=== PATIENT | female | born 1970 | race Caucasian/White ===

== ENCOUNTER 2024-07-21 14:23 | Outpatient (REF) | payer SELFPAY ==
--- OUTSIDE RECORDS SUMMARY | 2024-07-21 14:30 | XMS_ITS | Continuity of Care Document ---
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 It does not include entries that were removed or entered in error. Problem Status Onset Date Problem Type Date of Resolution Comments Source Impacted cerumen Active 06/29/2024 Diagnosis [facility] Hyperlipidemia Active 06/29/2024 Diagnosis 6200 [facility] Vitamin D deficiency Active 06/29/2024 [facility] Active 06/29[facility]2024 [facility] Active 06/29/2024 Diagnosis [facility] Encounter for other orthopedic aftercare Active 11/18/2017 Condition [facility] Essential hypertension Active Condition [facility] [facility] Hyperlipidemia Active Condition [facility] [facility] Impacted cerumen Active Condition [facility] Lump on neck Active Condition [facility] Overweight Active Condition [facility] Perimenopausal disorder Active Condition [facility] [facility] Sleep disorder Active Condition [facility] [facility] Vitamin D deficiency Active Condition 6 [facility] Well adult Active Condition [facility] Medications Combined list of outpatient medications from [facility] and [facility] facilities.Medications provided include 1) outpatient medications from the last 15 months, and 2) patient-reported medications. Medication Details Route Status Patient Instructions Prescription Expires Prescription Number Last Dispense Date Ordering Provider Order Date Order Qty Source Benadryl 25 mg oral tablet 1 tab(s), Oral, TID, PRN as needed for allergy symptoms , # 30 tab(s), 0 total refill(s ), Maintena nce, 1 tab(s) Oral TID,PRN: as needed for allergy symptoms , Pharmacy : [facility] Oral (given by mouth) Discont inued 03/26/2023 30.[facility] 300 mg oral capsule 2 cap, Oral, Daily, 0 total refill(s ), Maintena nce Oral (given by mouth) [facility]03/[facility] 500 mg oral tablet 1 tab(s), Oral, every 12 hr, X 5 days, # 10 tab(s), 0 total refill(s ), Acute, 03/23/23 8:37:00 PM CDT, 1 tab(s) Oral every 12 hr,x5 days, Pharmacy : [id number] Oral (given by mouth) Complet ed 03/24/2023 10.[facility] 300 mg oral capsule 1 cap(s), Oral, BID, X 7 days, # 14 cap(s), 0 total refill(s ), Acute, 10/21/21 1:40:00 PM CDT, 1 cap(s) Oral BID,x7 days, Pharmacy : [facility] Oral (given by mouth) Complet ed 10/21/2021 14.0 0032A[facility] conjugated estrogens 0.3 mg oral tablet 1 tab(s), Oral, Daily, # 90 tab(s), 3 total refill(s ), Hard Stop, Pharmacy : [facility] Oral (given by mouth) Complet ed 06/29/2024 90.0 0057C[facility] estrogens 0.3 mg oral tablet 1 tab(s), Oral, Daily, # 90 tab(s), 1 total refill(s ), Maintena nce, 1 tab(s) Oral Daily, Pharmacy : [facility] Oral (given by mouth) Ordered 90.0 0C-F [facility] Debrox 6.5% otic solution 5 drop(s), Ear-Left , BID, # 30 mL, 0 total refill(s ), Maintena nce, 5 drop(s) Ear-Left BID,x7 days, Pharmacy : [facility] Left ear Ordered 07/06/2024 30.0 0C -[facility] Diflucan 150 mg oral tablet 1 tab(s), Oral, As Directed , X 1 days, # 1 tab(s), 0 total refill(s ), Acute, 10/15/21 1:44:00 PM CDT, 1 tab(s) Oral As Directed ,x1 days, Pharmacy : [facility] Oral (given by mouth) Complet ed 10/15/2021 1.0 0032A-E [facility] Effexor XR 37.5 mg oral capsule, extended release 1 cap(s), Oral, Daily, # 90 cap(s), 0 total refill(s ), Maintena nce, 1 cap(s) Oral Daily, Pharmacy : [facility] Oral (given by mouth) Discont inued 06/23/2021 90.0 [facility] LISINOPRIL (lisinopril ), 20 MG, TABLET, ORAL, [employer], 1000 ea. BOTTLE Active [id number] 4 2023 90 Pharmac y Data Transac tion Service Facilit y lisinopril 10 mg oral tablet 1 tab(s), Oral, Daily, for blood pressure , # 90 tab(s), 3 total refill(s ), Hard Stop, [facility] Oral (given by mouth) Complet ed 03/23/2021 90.0 [facility] [place] lisinopril 10 mg oral tablet 1 tab(s), Oral, Daily, for blood pressure , # 90 tab(s), 0 total refill(s ), Maintena nce, 1 tab(s) Oral Daily,In str:for blood pressure , Pharmacy : [facility] Oral (given by mouth) Discont inued 05/24/2021 90.0 [facility] [place] lisinopril 20 mg oral tablet 1 tab(s), Oral, Daily, for blood pressure , # 90 tab(s), 3 total refill(s ), Hard Stop, Pharmacy : [facility] Oral (given by mouth) Complet ed 10/15/2023 90.0 [facility] mg oral tablet 1 tab(s), Oral, Daily, for blood pressure , # 90 tab(s), 3 total refill(s ), Maintena nce, 1 tab(s) Oral Daily,In str:for blood pressure , Pharmacy : [facility] Oral (given by mouth) Discont inued 08/11/2022 90.0 [facility] l[facility] 20 mg oral tablet 1 tab(s), Oral, Daily, for blood pressure , # 90 tab(s), 3 total refill(s ), Maintena nce, 1 tab(s) Oral Daily,In str:for blood pressure , Pharmacy : [facility] Oral (given by mouth) Ordered 90.0 [facility] Medrol Dosepak 4 mg oral tablet 1 packet(s ), Oral, As Directed , as directed on package labeling , X 6 days, # 21 tab(s), 0 total refill(s ), Acute, 1 packet(s ) Oral As Directed ,x6 days,Ins tr:as directed on package labeling , Pharmacy : [facility] Oral (given by mouth) Complet ed 10/20/2021 21.0 [facility] NITROFURANT OIN MONO-MACRO (NITROFURAN TOIN MONOHYD/M-C RYST), 100 MG, CAPSULE, ORAL, [employer], 100 ea. BOTTLE Active [id number] 2023 14 Pharmac y Data Transac tion Service Facilit y omeprazole 20 mg oral delayed release capsule 1 cap(s), Oral, BID, 30 to 60 minutes before a meal, # 60 cap(s), 2 total refill(s ), Maintena nce, [facility] Oral (given by mouth) Discont inued 11/04/2019 60.0 0125C-A JOSEPH [facility] ondansetron 4 mg oral tablet, disintegrat ing 1 tab(s), Oral, every 8 hr, PRN as needed for Nausea or Vomiting , # 10 tab(s), 0 total refill(s ), Acute, 03/23/23 12:00:00 AM CDT, 1 tab(s) Oral every 8 hr,PRN:a s needed for Nausea or Vomiting , Pharmacy : [id number] Oral (given by mouth) Complet ed 03/23/2023 10.0 0057[facility] PREMARIN (ESTROGENS, CONJUGATED) , 0.3MG, TABLET, ORAL, [employer], 1000 ea. BOTTLE Active [id number] 3 2022 90 Pharmac y Data Transac tion Service Facilit y PREMARIN (ESTROGENS, CONJUGATED) , 0.3MG, TABLET, ORAL, [employer], 1000 ea. BOTTLE Active [id number] 4 2023 90 Pharmac y Data Transac tion Service Facilit y Premarin 0.3 mg oral tablet 90 tab(s), 0 Refill(s ), 0 total refill(s ), Soft Stop Discont inued 09/16/2023 0057C[facility] Premarin 0.3 mg tablet 0.3 mg, Oral, Daily, # 90 EA, 1 total refill(s ), Hard Stop Oral (given by mouth) Complet ed 07/10/2024 90.0 Ambulat ory Pharmac y progesteron e 100 mg oral capsule 1 cap(s), Oral, every day at bedtime, # 90 cap(s), 3 total refill(s ), Hard Stop, Pharmacy : [facility] Oral (given by mouth) Complet ed 06/29/2024 90.0 7C[facility]I [facility] progesteron e 100 mg oral capsule 2 cap(s), Oral, every day at bedtime, 0 total refill(s ), Maintena nce Oral (given by mouth) Discont inued 07/11/2023 0057[facility] progesteron e 100 mg oral capsule 1 cap(s), Oral, every day at bedtime, # 90 cap(s), 1 total refill(s ), Maintena nce, 1 cap(s) Oral every day at bedtime, Pharmacy : [facility] Oral (given by mouth) Ordered 90.0 6200C-F [facility] Promethazin e with Codeine 6.25 mg-10 mg/5 mL oral syrup 5 mL, Oral, every 6 hr, PRN cough, # 180 mL, 0 total refill(s ), Maintena nce, 5 mL Oral every 6 hr,PRN:a s needed for cough, Pharmacy : [facility] Oral (given by mouth) Discont inued 03/26/2023 180.0 0032A-E [facility] PROMETRIUM (progestero ne, micronized) , 100 MG, CAPSULE, ORAL, [employer] [facility], 30 ea. BOTTLE Cancele d [id number] : 2023 0 Pharmac y Data Transac tion Service Facilit y PROMETRIUM (progestero ne, micronized) , 100 MG, CAPSULE, ORAL, [employer] [facility], 30 ea. BOTTLE Active [id number] 3 2022 90 Pharmac y Data Transac tion Service Facilit y Prometrium 100 mg oral capsule 1 cap(s), Oral, Daily, X 30 days, # 90 cap(s), 1 total refill(s ), Acute, 1 cap(s) Oral Daily,x3 0 days, Pharmacy : [facility] Oral (given by mouth) Complet ed 05/27/2022 90.0 0032C-E [facility] Prometrium 100 mg oral capsule 90 cap(s), 0 Refill(s ), 0 total refill(s ), Soft Stop Discont inued 09/16/2023 0057C[facility] raNITIdine 150 mg oral capsule 2 cap(s), Oral, every day at bedtime, # 60 cap(s), 2 total refill(s ), Maintena nce, [facility] Oral (given by mouth) Discont inued 11/04/2019 60.0 0125C-A [facility] raNITIdine 150 mg oral tablet 300 mg, Oral, every day at bedtime, # 60 tab(s), 4 total refill(s ), Maintena nce, 2 tab(s) Oral every day at bedtime, Pharmacy : [id number] Oral (given by mouth) Discont inued 10/03/2020 60.0 0125C[facility] [place] Sudafed 30 mg oral tablet 1 tab(s), Oral, every 6 hr, # 24 tab(s), 0 total refill(s ), Maintena nce, 1 tab(s) Oral every 6 hr, Pharmacy : [facility] Oral (given by mouth) Discont inued 03/26/2023 24.0 0032A[facility] Tessalon Perles 100 mg oral capsule 1 cap(s), Oral, TID, PRN cough, X 10 days, # 30 cap(s), 0 total refill(s ), 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, 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 It does not include entries that were removed or entered in error. Substance Category Reaction Severity Reaction type Status Date Reported Comments Source doxycycline Drug allergy Pruritus Moderate Active 0057C-[facility] in [facility] DOXYCYCLINE HYCLATE Drug allergy (disorder ) Pruritus, Eye itching active 3 [facility] Penicillins Drug allergy (disorder ) Anaphylaxis active 9 D. Melissa. Rose Marie barcenas [facility] penicillins Drug allergy Anaphylaxis Unknown Active 9 7C[facility] in [facility] Tetracyclines Drug allergy (disorder ) Urticaria active 9 D. Joce barcenas [facility] Immunizations Combined list of available immunizations from the Department of Defense and Veterans Affairs facilities. Immunization Series Date Given Administered By Site Reaction Lot Number CVX Code Drug Trim Attacher Status Comments Source influenza virus vaccine, inactivated 2023 JARABPEGAMARLEVON Boyd jeimy, left (delt oid) [id number] Kaseya, A [employer] complet ed influenza virus vaccine, inactivat ed 06/29/[address] [place] [address] COVID-19 vaccine(Comir kalpesh 12y+) 2022 HELENOWUSU-BA 309 complet ed Result Comment: Route: Unknown Manufactu rer: OT (PFR) [address] [place] [address] Influenza, inj, MDCK, quadrivalent- pf 2022 HELENOWUSU-BA AH 171 complet ed Result Comment: Route: Unknown Manufactu rer: [facility] (SEQ) [address] [place] [address] zoster vaccine, inactivated 2022 HELENOWUSU-BA AH 187 complet ed Result Comment: Route: Unknown Manufactu rer: [facility] (SKB) [address] [place] [address] COVID-19, mRNA, LNP-S, PF, 30 mcg/0.3 mL dose, nicole-sucrose 2021 SUAREZ-EISM AN, [employer] [place] (PFR) Not Given COVID-19, mRNA, LNP-S, PF, 30 mcg/0.3 mL dose, nicole-sucr ose DoD zoster recombinant 2021 SUAREZ-EISM AN, () Not Given zoster recombina nt DoD SARS-CoV-2 mRNA(toziname ckk-xcvz-bal) vac 2021 NINO Barcenas 217 complet ed Result Comment: Unit: Unknown Manufactu rer: [employer]u [employer] [place] (PFR) 0057C-[facility] influenza virus vaccine, inactivated 2020 CALEBLEANDRO Boyd jeimy, left (delt oid) [id number] Gl[employer]oSmith[employer] ne complet ed Result Comment: Performed By: CPL Carlos Santos 0032C-E [facility] COVID Vaccine Moderna 2020 ADRI Dempseyul jeimy, left (delt oid) [id number] Moderna [employer] complet ed COVID Vaccine Moderna 05/23/21 Given [facility] tetanus, diphtheria, acellular pertu is 2020 ADRI ALLION Shoul jeimy, right (delt oid) [id number] 115 GlaxoSmithKli wi complet ed tetanus, diphtheri a, acellular pertussis 05/23/21 Given [facility] Vaccine Pfizer 2020 CONCETTA.EDCHRISTINEALV ONMURRAY Shoul jeimy, left (delt oid) [id number] PFIZER complet ed Result Comment: Patient reporting for COVID-19 Vaccine. Patient identity with full name and , order and patient s five rights verified. Patient s health history reviewed; no allergies to medicatio n or contraind ications noted, per protocol. Medicatio n drawn up using aseptic technique . Patient s injectio n site prepped with alcohol prep pad. 0.3ml injected Intramusc ular into ed to wait 15 minutes after administr ation and report any side effects. Advised patient to report unusual symptoms after leaving clinic to ER or call 911, including redness, pain, swelling, fever, worsening of existing medical condition s. Patient has read and verbalize melissa martinez of 360T VIS, if indicated for this medicatio n. Patient screened by: Norma Trinh 0125C-[place] COVID Vaccine Pfizer 2020 CONCETTA.EDCHRISTINEALV ONMURRAY Shoul jeimy, left (delt oid) [id number] PFIZER complet ed Result Comment: Patient reporting for COVID-19 Vaccine. Patient identity with full name and , order and patient s five rights verified. Patient s health history reviewed; no allergies to medicatio n or contraind ications noted, per protocol. Medicatio n drawn up using aseptic technique . Patient s injectio n site prepped with alcohol prep pad. 0.3ml injected Intramusc ular into eft Arm. Patient advised to wait 15 minutes after administr ation and report any side effects. Advised patient to report unusual symptoms after leaving clinic to ER or call 911, including redness, pain, swelling, fever, worsening of existing medical condition s. Patient has read and verbalize melissa martinez of 360T VIS, if indicated for this medicatio n. Patient screened by: Norma Trinh 0125C-[facility] [place] influenza, injectable, quadrivalent, preservative free 2019 BUYS, () Not Given influenza , injectabl e, quadrival ent, preservat shante free [facility] influenza, injectable, quadrivalent- pf 2019 NINO R 150 complet ed Result Comment: Unit: Unknown Manufactu rer: () 0057C-I [facility] influenza virus vaccine, inactivated 2018 BILL Boyd jeimy, left (delt oid) [id number] [employer], [employer] complet ed Result Comment: SCREENED BY ALICIA WEST RN ADMINISTE RED BY ALICIA WEST RN 0125C-A [facility] Influenza, inj, MDCK, quadrivalent- pf 2017 NINO R 171 complet ed Result Comment: Route: Unknown Manufactu rer: () 005C-I [facility]osp[facility] influenza, seasonal, injectable-pf 2015 NINO R 140 complet ed Result Comment: Route: Unknown Manufactu rer: () 0057C-I [facility]ospita l Results Combined list of recent chemistry, hematology and other laboratory results from Department of Defense and Veterans Affairs, ranging from 15 months to all on record, depending upon the facility. Order Name Results Value Reference Range Date Interpretation Specimen Comments Source Hematolog y WBC 6.3 10^3/uL 4.4 - 9.5103 06/[address] [facility] Hematolog y RBC 4.53 10^6/uL 3.98 - 5.13493 06/[address] [facility] y Hemoglobin 13.9 g/dL 12.1 - 14.8 06/[address] [facility] Hematolog y Hematocrit 42.2 % 36.5 - 45.6 06/[address] [facility] Hematolog y MCV 93.1 fL 80.8 - 97.8 06/[address] [facility] Hemat[facility] y MCH 30.7 pg 26.8 - 32.9 06/[address] [place] [address] Hematolog y MCHC 32.9 g/dL 31.4 - 34.8 06/[address] [place] [address] Hematolog y RDW 11.9 % 10.9 - 13.5 06/[address] [place] [address] Hematolog y Platelets 254 10^3/uL 130 - [id number] 06/[address] [place] [address] Hematolog y MPV 8.9 fL 7.2 - 11.2 06/[address] [place] [address] Chemistry Sodium 141 mmol/L 136 - 145 06/[address] [place] [address] Chemistry Potassium Lvl 4.0 mmol/L 3.5 - 5.1 06/[address] [place] [address] Chemistry Chloride 104 mmol/L 98 - 107 06/[address] [place] [address] Chemistry CO2 25 mmol/L 22 - 29 06/[address] [place] [address] Chemistry Glucose Lvl 90 mg/dL 74 - 106 06/[address] [place] [address] Chemistry BUN 13 mg/dL 6 - 20 06/[address] [place] [address] Chemistry Creatinine Level 0.73 mg/dL 0.50 - 1.00 06/[address] [place] [address] Chemistry Calcium 9.3 mg/dL 8.6 - 10.2 06/[address] [place] [address] Chemistry AGAP 12 mmol/L 7 - 16 06/[address] [place] [address] Chemistry BUN/Creat Ratio 18 06/[address] [place] [address] Chemistry ALT 20 U/L 0 - 33 06/23 N Interpretiv e Data: Any abnormality in a patient's ALT could be a marker of serious liver disease, including chronic viral hepatitis. If the ALT is repeatedly elevated consider testing for Hepatitis C AB. [address] [place] [address] Chemistry AST 18 U/L 0 - 35 06/[address] [place] [address] Chemistry Albumin 4.4 g/dL 3.5 - 5.2 06/[address] [place] [address] Chemistry Alk Phos 73 U/L 35 - 104 06/[address] [place] [address] Chemistry Bilirubin Total 0.5 mg/dL 0.0 - 1.2 06/[address] [place] [address] Chemistry Protein Total 7.0 g/dL 6.6 - 8.7 06/[address] [place] [address] Chemistry Cholesterol Total 190 mg/dL 0 - 199 06/23 N Interpretiv e Data: Cholesterol : >18 yrs Desirable <200, Borderline High 200-239, High >=240 2-17 yrs Acceptable <170, Borderline High 170-199, High >=200 Source: -Third Report of the National Cholesterol Education Program (NCEP) Expert Panel on Detection, Evaluation, and Treatment of High Blood Cholesterol in Adults (Adult Treatment Panel III) Final Report; Circulation Jun 2002, 25,596 3-027. -Expert panel on integrated guidelines for cardiovascu lar health and risk reduction in children and adolescents ; Pediatrics Jun 2011,128(Forde pplement 5)T909-P058 . [address] [place] [address] Chemistry HDL Cholesterol 46 mg/dL 06/23 N Interpretiv e Data: HDL: 2-17 yrs Acceptable >45, Borderline Low 40-45, Low <40 >18 yrs Desirable >=60, Low <40 HDL <40 constitutes a coronary heart disease risk factor. HDL >60 is a negative risk factor for coronary heart disease. Source: -Third Report of the National Cholesterol Education Program (NCEP) Expert Panel on Detection, Evaluation, and Treatment of High Blood Cholesterol in Adults (Adult Treatment Panel III) Final Report; Circulation Jun 2002, ([phone]. -Expert panel on integrated guidelines for cardiovascu lar health and risk reduction in children and adolescents ; Pediatrics Jun 2011,128(Forde pplement 5)D608-U347 . [address] [place] [address] Chemistry LDL 113 mg/dL 0 - 100 06/23 H Interpretiv e Data: LDL: 2-17 yrs Acceptable <110, Borderline High 110-129, High >=130 >18 yrs Optimal <100, Near Optimal 100-129, Borderline High 130-159, High 160-189, Very High >=190 Source: -Third Report of the National Cholesterol Education Program (NCEP) Expert Panel on Detection, Evaluation, and Treatment of High Blood Cholesterol in Adults (Adult Treatment Panel III) Final Report; Circulation Jun 2002, ([phone] 3-232. -Expert panel on integrated guidelines for cardiovascu lar health and risk reduction in children and adolescents ; Pediatrics Jun 2011,128(Forde pplement 5)E392-N902 . [facility] Triglycerid es 147 mg/dL 0 - 149 06/23 N Interpretiv e Data: Triglycerid e: >18 yrs Desirable <150, Borderline High 150-199, High 200-499, Very High >=500 10-17 yrs Acceptable <90, Borderline High 90-129, High >=130 2-9 yrs Acceptable <75, Borderline High 75-99, High >=100 Source: -Third Report of the National Cholesterol Education Program (NCEP) Expert Panel on Detection, Evaluation, and Treatment of High Blood Cholesterol in Adults (Adult Treatment Panel III) Final Report; Circulation Jun 2002, 25,889 1-121. -Expert panel on integrated guidelines for cardiovascu lar health and risk reduction in children and adolescents ; Pediatrics Jun 2011,128(Forde pplement 5)U826-J753 . [facility] [employer] Chemistry Chol/HDL 4.13 06/23 6117-[facility] Chemistry LDL/HDL 2 06/23 6117C-S [employer] Chemistry VLDL 29 mg/dL 2 - 30 06/23 N [facility] Chemistry Non-HDL Cholesterol 144 06/23 Interpretiv e Data: Non-HDL: 2-17 yrs Acceptable <120, Borderline High 120-144, High >=145 >18 yrs Desirable <130, Less Desirable 130-159, Borderline High 160-189, High 190-219, Very High >=220 Non-HDL is a secondary target of therapy in persons with high serum triglycerid es (>199). The goal for Non-HDL in persons with high triglycerid es is 30 higher than their LDL goal. Source: -Third Report of the National Cholesterol Education Program (NCEP) Expert Panel on Detection, Evaluation, and Treatment of High Blood Cholesterol in Adults (Adult Treatment Panel III) Final Report; Circulation Jun 2002(29),210 4-399. -Expert panel on integrated guidelines for cardiovascu lar health and risk reduction in children and adolescents ; Pediatrics Jun 2011,128(Forde pplement 5)C239-T570 . [address] [place] [address] Chemistry Hemoglobin A1c 5.0 % 4.0 - 5.6 06/[address] [place] [address] Chemistry eAvg Glucose 97 mg/dL 06/[address] [place] [address] Chemistry Vitamin D 25 OH 25.300 ng/mL 30.000 - 100.000 06/23 L Interpretiv e Data: </= 20 : Deficiency 21-29 : Insufficien cy 30-50 : Sufficient (target range) 50-100 : Sufficient (above target) 101-150 : High (low risk of toxicity) >150 : High (possible toxicity) [address] [place] [address] Chemistry TSH 3.360 uIU/mL 0.270 - 4.200 06/23 N Interpretiv e Data: Free T4 will be automatical ly performed when TSH <0.27 or >4.[address] [place] [address] Chemistry eGFR CKD EPI 98 mL/min 06/23 Interpretiv e Data: Estimated Glomerular Filtration Rate (eGFR) calculated using the 2020 Chronic Kidney Disease-Epi demiology (CKD-EPI) Collaborati on creatinine equation; units of measure are mL/min/1.73 m2. Results are only valid for adults (>=18 years) whose serum creatinine is in steady state. eGFR calculation s are not valid for patients with acute kidney injury and for patients on dialysis. Creatinine- based estimates of kidney function may also be inaccurate in patients with reduced creatinine generation due to decreased muscle mass (e.g., malnutritio n, severe hypoalbumin emia, sarcopenia, chronic neuromuscul ar disease, amputations , severe heart failure or liver disease) and in patients with increased creatinine generation due to increased muscle mass (e.g., muscle builders, anabolic steroids) or increased dietary intake. CKD is diagnosed based on abnormaliti es of kidney structure or function, present for >3 months, with implication s for health and disease. CKD is classified and staged based on cause, eGFR and albuminuria (quantified as urine albumin to creatinine ratio). An eGFR >60 mL/min/1.73 m2 in the absence of increased urine albumin excretion or structural abnormaliti es does not represent CKD. eGFR provides only an estimate of measured GFR within +/- 30% for most patients. As mentioned, nutritional status and muscle mass, among many factors, may lead to inaccuracy in the estimate. Consider ordering the creatinine- cystatin C panel if better accuracy is needed for clinical decision-ignacia loza. eGFR (mL/min/1.7 3 m2) CKD stage Interpretat ion >=90 G1 Normal 60-89 G2 Mild decrease 45-59 G3A Mild to moderate decrease 30-44 G3B Moderate to severe decrease 15-29 G4 Severe decrease <15 G5 Kidney failure [facility] Chemistry eGFR CKD EPI 106 mL/min/1 .73_m2 09/16 Interpretiv e Data: Estimated Glomerular Filtration Rate (eGFR) calculated using the 2020 Chronic Kidney Disease-Epi demiology (CKD-EPI) Collaborati on creatinine equation; units of measure are mL/min/1.73 m2. Results are only valid for adults (e18 years) whose serum creatinine is in steady state.? eGFR calculation s are not valid for patients with acute kidney injury and for patients on dialysis. ?Creatinine -based estimates of kidney function may also be inaccurate in patients with reduced creatinine generation due to decreased muscle mass (e.g., malnutritio n, severe hypoalbumin emia, sarcopenia, chronic neuromuscul ar disease, amputations , severe heart failure or liver disease) and in patients with increased creatinine generation due to increased muscle mass (e.g., muscle builders, anabolic steroids) or increased dietary intake. As drug clearance is proportiona l to total GFR and not GFR indexed to body surface area (BSA), in individuals with a BSA substantial ly different than 1.73 m2, drug dosing should be based the reported eGFRvalue de-indexed from BSA by multiplying by the individual s BSA and dividing by 1.73. CKD is diagnosed based on abnormaliti es of kidney structure or function, present for >3 months, with implication s for health and disease. CKD is classified and staged based on cause, eGFR and albuminuria (quantified as urine albumin to creatinine ratio). An eGFR >60 mL/min/1.73 m2 in the absence of increased urine albumin excretion or structural abnormaliti es does not represent CKD.eGFR (mL/min/1.7 3 m2) CKD stage Interpretat ion e90 G1 Normal 60-89 G2 Mild decrease 45-59 G3A Mild to moderate decrease 30-44 G3B Moderate to severe decrease 15-29 G4 Severe decrease <15 G5 Kidney failure [facility] Urinalys[facility] s UA Color Yellow *NA* (09/16/23 10:58 AM) 09/16 [facility] Urinalys[facility] UA Clarity Clear (09/16/23 10:58 AM) 09/16 N [facility] Urinalysi s UA Spec Gary 1.024 1.002 - 1.030 09/16 N [facility] Urinalysi s UA Glucose Negative mg/dL 09/16 N [facility] Urinalys[facility] s UA Bili Negative (09/16/23 10:58 AM) 09/16 N [facility] Urinalys[facility] s UA Ketones Negative (09/16/23 10:58 AM) 09/16 N [facility] Urinalys[facility] UA Blood Moderate *ABN* (09/16/23 10:58 AM) 09/16 A [facility] Urinalys[facility] s UA pH 5.0 (09/16/23 10:58 AM) 09/16 N [facility] Urinalys[facility] s UA Protein Negative (09/16/23 10:58 AM) 09/16 N [facility] Urinalysi s UA Urobilinoge n Normal (09/16/23 10:58 AM) 09/16 N [facility] Urinalysi s UA Nitrite Negative (09/16/23 10:58 AM) 09/16 N [facility] Urinalysi s UA Leuk Esterase Negative (09/16/23 10:58 AM) 09/16 N [facility] Urinalysi s UA WBC <1 /HPF 0 - 5 09/16 N [facility] Urinalysi s UA RBC /HPF 0 - 3 09/[address] [place] [address] Urinalysi s UA Mucous Rare /LPF 09/[address] [place] [address] Urinalysi s UA Epi Squam 1 /HPF 0 - 5 09/[address] [place] [address] Urinalysi s UA Bacteria None Seen (09/16/23 10:58 AM) 09/[address] [place] [address] Chemistry Cortisol Lvl 7.32 ug/dL 3.00 - 23.00 09/16 N Interpretiv e Data: Ingestion of Biotin or Biotin-cont aining supplements >5 mg/day within 8 hours of specimen collection has known interferenc e on the result of this test. Cortisol AM: 4.82 - 19.5 mcg/dL PM: 2.47 - 11.9 mcg/dL [address] [place] [address] Chemistry Cholesterol Total 196 mg/dL 100 - 200 09/[address] [place] [address] Chemistry HDL Cholesterol 43 mg/dL 40 - 59 09/[address] [place] [address] Chemistry Triglycerid es 161 mg/dL 09/[address] [place] [address] Chemistry VLDL 32 mg/dL 5 - 40 09/[address] [place] [address] Hematolog y WBC 6.4 K/mcL 4.7 - 10.8 09/[address] [place] [address] Hematolog y RBC 4.27 10^6/uL 4.20 - 5.23085 09/[address] [place] [address] Hematolog y Hemoglobin 13.2 g/dL 12.0 - 16.0 09/[address] [place] [address] Hematolog y Hematocrit 37.5 % 37.0 - 47.0 09/[address] [place] [address] Hematolog y MCV 87.9 fL 81.0 - 99.0 09/[address] [place] [address] Hematolog y MCH 31.0 pg 27.0 - 31.0 09/[address] [place] [address] Hematolog y MCHC 35.3 g/dL 32.0 - 36.0 09/[address] [place] [address] Hematolog y RDW 13.3 % 11.5 - 14.5 09/[address] [place] [address] Hematolog y Platelets 284 K/mcL 130 - 400 09/[address] [place] [address] Hematolog y MPV 9.0 fL 6.4 - 10.4 09/[address] [place] [address] Chemistry Ur Creat 143.8 mg/dL 20.0 - 275.0 09/[address] [place] [address] Chemistry Ur Protein <5.0 mg/dL 09/[address] [place] [address] Chemistry Ur Protein/Ur Creat Ratio <28.76 09/[address] [place] [address] Chemistry Vitamin D 25 OH 40 ng/mL 22 - 40 09/[address] [place] [address] Chemistry Hemoglobin A1c 5.1 % 4.3 - 5.6 09/16 N Interpretiv e Data: Reference Interval: d 5.7% Consensus guidelines as outlined by as outlined by ADA are the following: o?6.5% HbA1c: Diagnostics for Diabetes mellitus o?7.0% HbA1c: Target value to reduce microvascul ar complicatio ns for many non-pregnan t patients under glycemic control programs. o?<8.0% HbA1c: Target value that may be appropriate for patients with history of severe hypoglycemi a, limited life expectancy, advanced micro- or macrovascul ar complicatio ns, other co-morbid conditions or in those where interventio ns have proven difficult. o?Patie nts with HbA1c concentrati ons between 5.7% and 6.4% should be referred to support programs and may be considered for metformin therapy. o?For gestational diabetes (GDM), HbA1c may be used as an initial screen, but should be followed up using an alternative method for persistence . [address] [place] [address] Chemistry eAvg Glucose 100 09/[address] [place] [address] Chemistry T4 Free 1.12 ng/dL 0.64 - 1.79 09/[address] [place] [address] Chemistry TSH, Sensitive 2.320 uIU/mL 0.465 - 4.680 09/[address] [place] [address] Chemistry Vitamin B12 405 pg/mL 239 - 931 09/[address] [place] [address] Chemistry Glucose Lvl 101 mg/dL 65 - 110 09/[address] [place] [address] Chemistry BUN 15 mg/dL 7 - 17 09/[address] [place] [address] Chemistry Creatinine Level 0.64 mg/dL 0.52 - 1.04 09/[address] [place] [address] Chemistry Sodium 140 mmol/L 137 - 145 09/[address] [place] [address] Chemistry Potassium Lvl 4.3 mmol/L 3.6 - 5.0 09/[address] Chemistry Chloride 108 mmol/L 98 - 107 09/[address] [place] [address] Chemistry CO2 23 mmol/L 22 - 30 09/[address] [place] [address] Chemistry Calcium 9.3 mg/dL 8.4 - 10.2 09/[address] Chemistry Protein Total 7.5 g/dL 6.3 - 8.2 09/[address] Chemistry Albumin 4.3 g/dL 3.5 - 5.0 09/[address] Chemistry AST 35 U/L 14 - 52 09/[address] [place] [address] Chemistry Alk Phos 81 U/L 38 - 126 09/[address] Chemistry Bilirubin Total 0.5 mg/dL 0.2 - 1.3 09/[address] Chemistry ALT 22 U/L 0 - 35 09/[address] Chemistry AGAP 9 meq/L 8 - 12 09/[address] [place] [address] Hematolog y Neutrophil % Auto 66.1 % 42.2 - 75.2 02/26 /[address] [place] [address] Hematolog y Lymphocyte % Auto 23.5 % 20.5 - 51.1 09/[address] [place] [address] Hematolog y Monocyte % Auto 8.1 % 1.7 - 9.3 09/[address] [place] [address] Hematolog y Eosinophil % Auto 1.6 % 0.0 - 7.9 09/[address] [place] [address] Hematolog y Basophil % Auto 0.7 % 0.0 - 3.0 09/[address] [place] [address] Hematolog y Neutro Absolute 4.2 K/mcL 1.4 - 6.5 09/[address] [place] [address] Hematolog y Lymph Absolute 1.5 K/mcL 1.2 - 3.4 09/[address] [place] [address] Hematolog y Bacon Absolute 0.5 K/mcL 0.1 - 0.6 09/[address] [place] [address] Hematolog y Eos Absolute 0.1 K/mcL 0.0 - 0.7 09/[address] [place] [address] Hematolog y Baso Absolute 0.0 K/mcL 0.0 - 0.2 09/[address] [place] [address] Hematolog y nRBC % Auto 0.1 09/[address] [place] [address] Chemistry LDL Direct 124.6 mg/dL 0.0 - 99.9 09/[address] [place] [address] Chemistry POC U HCG Negative (03/18/23 5:10 PM) 03/[address] [place] [address] Chemistry Glucose Lvl 98 mg/dL 65 - 110 03/[address] [place] [address] Chemistry BUN 14 mg/dL 7 - 17 03/[address] [place] [address] Chemistry Creatinine Level 0.76 mg/dL 0.52 - 1.04 03/[address] [place] [address] Chemistry Sodium 140 mmol/L 137 - 145 03/[address] [place] [address] Chemistry Potassium Lvl 3.8 mmol/L 3.6 - 5.0 03/[address] [place] [address] Chemistry Chloride 104 mmol/L 98 - 107 03/[address] [place] [address] Chemistry CO2 25 mmol/L 22 - 30 03/[address] [place] [address] Chemistry Calcium 8.8 mg/dL 8.4 - 10.2 03/[address] [place] [address] Chemistry Protein Total 6.9 g/dL 6.3 - 8.2 03/[address] [place] [address] Chemistry Albumin 4.0 g/dL 3.5 - 5.0 03/[address] [place] [address] Chemistry AST 32 U/L 14 - 52 03/[address] [place] [address] Chemistry Alk Phos 80 U/L 38 - 126 03/[address] [place] [address] Chemistry Bilirubin Total 0.6 mg/dL 0.2 - 1.3 03/[address] [place] [address] Chemistry ALT 37 U/L 0 - 35 03/[address] [place] [address] Chemistry AGAP 11 meq/L 8 - 12 03/[address] [place] [address] Hematolog y ESR, Westergren 77 mm/h 0 - 30 03/[address] [place] [address] Hematolog y WBC 4.9 K/mcL 4.7 - 10.8 03/[address] [place] [address] Hematolog y RBC 3.83 10^6/uL 4.20 - 5.87226 03/[address] [place] [address] Hematolog y Hemoglobin 11.6 g/dL 12.0 - 16.0 03/[address] [place] [address] Hematolog y Hematocrit 33.7 % 37.0 - 47.0 03/[address] [place] [address] Hematolog y MCV 88.1 fL 81.0 - 99.0 03/[address] [place] [address] Hematolog y MCH 30.4 pg 27.0 - 31.0 03/18 N [facility] Sound Hematolog y MCHC 34.5 g/dL 32.0 - 36.0 03/18 N [facility] Sound Hematolog y RDW 12.5 % 11.5 - 14.5 03/18 N [facility] Sound Hematolog y Platelets 272 K/mcL 130 - 400 03/18 N [facility] Sound Hematolog y MPV 8.3 fL 6.4 - 10.4 03/18 N [facility] Differentia l? Manual (03/18/23 5:01 PM) 03/[address] [place] [address] Chemistry Lactic Acid Plasma 0.8 mmol/L 0.7 - 2.0 03/18 N Result Comment: TAT DELAYED DUE TO ANALYZER MALFUNCTION ; NOTIFIED RAMOS RN @ [phone]. - RD [address] [place] [address] Chemistry Lipase Lvl 91 U/L 23 - 300 03/[address] [place] [address] Chemistry CRP 3.6 mg/dL 0.0 - 1.0 03/18 H [facility] Sound Hematolog y PLT Estimate not indicate d 03/18 [facility] Sound Hematolog y Anisocytosi s Slight (03/18/23 5:01 PM) 03/[address] [place] [address] Sound Hematolog y Poikilocyto sis Slight (03/18/23 5:01 PM) 03/[address] [place] [address] Sound Hematolog y Ovalocytes Slight (03/18/23 5:01 PM) 03/18 N [facility] Sound Hematolog y Large Platelet Slight (03/18/23 5:01 PM) 03/18 N [facility] Sound Hematolog y Segs Man 60 % 50 - 70 03/18 N [facility] Sound Hematolog y Lymph Man 21 % 20 - 51 03/18 N [facility] Hematolog y Bacon Man 16 % 0 - 10 03/18 H [facility] Hematolog y Eos Man 3 % 0 - 10 03/18 N [facility] Hematolog y Neut Abs Man 2.9 K/mcL 1.4 - 6.5 03/18 N [facility] Hematolog y Bacon Abs Man 0.8 K/mcL 0.1 - 0.6 03/18 H [facility] Hematolog y Eos Abs Man 0.1 K/mcL 0.0 - 0.7 03/18 N [facility] Chemistry eGFR CKD EPI 95 mL/min/1 .73_m2 03/18 Interpretiv e Data: Estimated Glomerular Filtration Rate (eGFR) calculated using the 2020 Chronic Kidney Disease-Epi demiology (CKD-EPI) Collaborati on creatinine equation; units of measure are mL/min/1.73 m2. Results are only valid for adults (e18 years) whose serum creatinine is in steady state.? eGFR calculation s are not valid for patients with acute kidney injury and for patients on dialysis. ?Creatinine -based estimates of kidney function may also be inaccurate in patients with reduced creatinine generation due to decreased muscle mass (e.g., malnutritio n, severe hypoalbumin emia, sarcopenia, chronic neuromuscul ar disease, amputations , severe heart failure or liver disease) and in patients with increased creatinine generation due to increased muscle mass (e.g., muscle builders, anabolic steroids) or increased dietary intake. As drug clearance is proportiona l to total GFR and not GFR indexed to body surface area (BSA), in individuals with a BSA substantial ly different than 1.73 m2, drug dosing should be based the reported eGFRvalue de-indexed from BSA by multiplying by the individual s BSA and dividing by 1.73. CKD is diagnosed based on abnormaliti es of kidney structure or function, present for >3 months, with implication s for health and disease. CKD is classified and staged based on cause, eGFR and albuminuria (quantified as urine albumin to creatinine ratio). An eGFR >60 mL/min/1.73 m2 in the absence of increased urine albumin excretion or structural abnormaliti es does not represent CKD.eGFR (mL/min/1.7 3 m2) CKD stage Interpretat ion e90 G1 Normal 60-89 G2 Mild decrease 45-59 G3A Mild to moderate decrease 30-44 G3B Moderate to severe decrease 15-29 G4 Severe decrease <15 G5 Kidney failure [facility] Urinalysi s UA Color Lidia *ABN* (03/18/23 4:45 PM) 03/18 A [facility] Urinalysi s UA Clarity Cloudy *ABN* (03/18/23 4:45 PM) 03/18 A [facility] Urinalysi s UA Spec Gary 1.023 1.002 - 1.030 03/18 N [facility] Urinalysi s UA Glucose Negative mg/dL 03/18 N [facility] Urinalysi s UA Bili Negative (03/18/23 4:45 PM) 03/18 N [facility] Urinalysi s UA Ketones Negative (03/18/23 4:45 PM) 03/18 N [facility] Urinalysi s UA Blood Moderate *ABN* (03/18/23 4:45 PM) 03/18 A [facility] Urinalysi s UA pH 5.0 (03/18/23 4:45 PM) 03/18 N [facility] Urinalysi s UA Protein Negative (03/18/23 4:45 PM) 03/18 N [facility] Urinalysi s UA Urobilinoge n Normal (03/18/23 4:45 PM) 03/18 N [facility] Urinalysi s UA Nitrite Negative (03/18/23 4:45 PM) 03/18 N [facility] Urinalysi s UA Leuk Esterase Negative (03/18/23 4:45 PM) 03/18 N [facility] Urinalysi s UA WBC 0 /HPF 0 - 5 03/18 N [facility] Urinalysi s UA RBC 0 /HPF 0 - 3 03/18 N [facility] Urinalysi s UA Mucous Occasion al /LPF 03/[address] [place] [address] Urinalysi s UA Amorph Crystal MOD 03/18 [facility] Urinalysi s UA Yeast Hyphae 0 /HPF 03/[address] [place] [address] Sound Hematolog y WBC 6.83 10^3/uL 3.40 - 10.97232 07/[address] [place] [address] Hematolog y RBC 4.8 10^6/uL 4.1 - 6.6 07/[address] [place] [address] Hematolog y Hemoglobin 14.7 g/dL 12.0 - 17.0 07/[address] [place] [address] Hematolog y Hematocrit 43.9 % 37.0 - 51.0 07/[address] [place] [address] Hematolog y MCV 90 fL 81 - 98 07/[address] [place] [address] Hematolog y MCH 30.3 pg 27.0 - 33.0 07/[address] [place] [address] Hematolog y MCHC 33.5 g/dL 32.0 - 35.0 07/[address] [place] [address] Hematolog y RDW SD 41.9 fL 35.1 - 46.3 07/[address] [place] [address] Hematolog y Platelets 210 K/mcL 130 - 400 07/[address] [place] [address] Hematolog y MPV 10.5 fL 8.7 - 11.6 07/[address] [place] [address] Hematolog y RDW CV 12.7 % 11.1 - 14.2 07/[address] [place] [address] Sound Chemistry Glucose Lvl 99 mg/dL 74 - 106 07/07 N Interpretiv e Data: 74-99 (mg/dL) Normal 100-125 (mg/dL) Pre-diabete s (impaired fasting glucose) 126 and above (mg/dL) Diabetes *when confirmed by repeating the test on a different day. Please use the following for OB Glucose tolerance test: Fasting: <95 mg/dL 1HR: <180 mg/dL 2HR: <155 mg/dL 3HR: <140 mg/dL New OB Interpretat ion added based on request for OB clinic. [address] [place] [address] Chemistry BUN 10.7 mg/dL 6.0 - 20.0 07/[address] [place] [address] Chemistry Creatinine Level 0.83 mg/dL 0.50 - 0.90 07/[address] [place] [address] Chemistry BUN/Creat Ratio 13 6 - 20 07/[address] [place] [address] Chemistry Sodium 139 mmol/L 136 - 145 07/[address] [place] [address] Chemistry Potassium Lvl 3.7 mmol/L 3.5 - 5.1 07/[address] [place] [address] Chemistry Chloride 101 mmol/L 98 - 107 07/[address] [place] [address] Chemistry CO2 24 mmol/L 22 - 29 07/[address] [place] [address] Chemistry Calcium 9.20 mg/dL 8.60 - 10.20 07/[address] [place] [address] Chemistry Protein Total 7.34 g/dL 6.60 - 8.70 07/[address] [place] [address] Chemistry Albumin 4.7 g/dL 3.5 - 5.2 07/[address] [place] [address] Chemistry AST 20 U/L 10 - 35 07/[address] [place] [address] Chemistry ALT 14 U/L 10 - 35 07/07 N [facility] Chemistry Alk Phos 83 U/L 35 - 104 07/07 N [facility] Chemistry Bilirubin Total 0.49 mg/dL 0.20 - 1.00 07/[address] [place] [address] Chemistry AGAP 14 6 - 16 07/[address] [place] [address] Chemistry A/G Ratio 1.8 1.0 - 2.0 07/07 N [facility] Hematolog y Imm. Granulocyte Absolute 0.02 10^3/uL 0.00 - 0.56528 07/07 H [facility] Hematolog y Imm. Granulocyte % 0.3 % 07/07 [facility] Hematolog y Neutro Absolute 3.53 10^3/uL 0.80 - 6.19047 07/07 N [facility] Hematolog y Lymph Absolute 1.74 10^3/uL 0.80 - 2.18049 07/07 N [facility] Hematolog y Bacon Absolute 1.45 10^3/uL 0.35 - 0.31577 07/07 H [facility] Hematolog y Eos Absolute 0.05 K/mcL 0.00 - 0.39 07/07 N [facility] Hematolog y Baso Absolute 0.04 K/mcL 0.00 - 0.20 07/07 N [facility] Hematolog y nRBC Absolute 0.00 10^3/uL 0.00 - 0.27033 07/07 N [facility] Hematolog y Neutrophil % Auto 52 % 36 - 75 07/07 N [facility] Hematolog y Lymphocyte % Auto 26 % 20 - 50 07/07 N [facility] Hematolog y Monocyte % Auto 21 % 3 - 10 07/07 H [facility] Hematolog y Eosinophil % Auto 1 % 0 - 4 07/07 N [facility] Hematolog y Basophil % Auto 0.6 % 0.0 - 2.0 07/07 N [facility] Hematolog y nRBC % Auto 0.0 % 0.0 - 0.2 07/07 N [facility] Chemistry eGFR CKD EPI >60 mL/min/1 .73_m2 07/07 Interpretiv e Data: Estimated Glomerular Filtration Rate (eGFR) calculated using the 2020 Chronic Kidney Disease-Epi demiology (CKD-EPI) Collaborati on creatinine equation; units of measure are mL/min/1.73 m2. Results are only valid for adults (e18 years) whose serum creatinine is in steady state.? eGFR calculation s are not valid for patients with acute kidney injury and for patients on dialysis. ?Creatinine -based estimates of kidney function may also be inaccurate in patients with reduced creatinine generation due to decreased muscle mass (e.g., malnutritio n, severe hypoalbumin emia, sarcopenia, chronic neuromuscul ar disease, amputations , severe heart failure or liver disease) and in patients with increased creatinine generation due to increased muscle mass (e.g., muscle builders, anabolic steroids) or increased dietary intake. As drug clearance is proportiona l to total GFR and not GFR indexed to body surface area (BSA), in individuals with a BSA substantial ly different than 1.73 m2, drug dosing should be based the reported eGFRvalue de-indexed from BSA by multiplying by the individual s BSA and dividing by 1.73. CKD is diagnosed based on abnormaliti es of kidney structure or function, present for >3 months, with implication s for health and disease. CKD is classified and staged based on cause, eGFR and albuminuria (quantified as urine albumin to creatinine ratio). An eGFR >60 mL/min/1.73 m2 in the absence of increased urine albumin excretion or structural abnormaliti es does not represent CKD.eGFR (mL/min/1.7 3 m2) CKD stage Interpretat ion e90 G1 Normal 60-89 G2 Mild decrease 45-59 G3A Mild to moderate decrease 30-44 G3B Moderate to severe decrease 15-29 G4 Severe decrease <15 G5 Kidney failure [facility] Molecular Infectiou s Disease Reason for Test? Diagnosi s (10/14/21 10:54 AM) 10/[address] Molecular Infectiou s Disease Influenza A PCR NEGATIVE 10/[address] Molecular Infectiou s Disease Influenza B PCR NEGATIVE 10/[address] Molecular Infectiou s Disease SARS-CoV-2 PCR Negative (10/14/21 10:54 AM) 10/[address] Molecular Infectiou s Disease RESP SYNCYTIAL VIRUS PCR Negative *NA* (10/14/21 10:54 AM) 10/[address] [place] [address] Chemistry Glucose Lvl 92 mg/dL 74 - 106 06/26 N Interpretiv e Data: 74-99 (mg/dL) Normal 100-125 (mg/dL) Pre-diabete s (impaired fasting glucose) 126 and above (mg/dL) Diabetes *when confirmed by repeating the test on a different day. Please use the following for OB Glucose tolerance test: Fasting: <95 mg/dL 1HR: <180 mg/dL 2HR: <155 mg/dL 3HR: <140 mg/dL New OB Interpretat ion added based on request for OB clinic. [address] [place] [address] Chemistry BUN 15.0 mg/dL 6.0 - 20.0 06/[address] [place] [address] Chemistry Creatinine Level 0.65 mg/dL 0.50 - 0.90 06/[address] [place] [address] Chemistry BUN/Creat Ratio 23 6 - 20 06/[address] [place] [address] Chemistry Sodium 141 mmol/L 136 - 145 06/[address] [place] [address] Chemistry Potassium Lvl 4.1 mmol/L 3.5 - 5.1 06/[address] [place] [address] Chemistry Chloride 105 mmol/L 98 - 107 06/[address] [place] [address] Chemistry CO2 23 mmol/L 22 - 29 06/[address] [place] [address] Chemistry Calcium 8.60 mg/dL 8.60 - 10.20 06/[address] [place] [address] Chemistry Protein Total 7.01 g/dL 6.60 - 8.70 06/[address] [place] [address] Chemistry Albumin 4.4 g/dL 3.5 - 5.2 06/[address] [place] [address] Chemistry AST 13 U/L 10 - 35 06/[address] [place] [address] Chemistry ALT 13 U/L 10 - 35 06/[address] [place] [address] Chemistry Alk Phos 74 U/L 35 - 104 06/[address] [place] [address] Chemistry Bilirubin Total 0.42 mg/dL 0.20 - 1.00 06/[address] [place] [address] Chemistry AGAP 13 6 - 16 06/[address] [place] [address] Chemistry A/G Ratio 1.7 1.0 - 2.0 06/26 N [address] [place] [address] Chemistry eGFR Non-AA 104 mL/min 06/[address] [place] [address] Chemistry eGFR AA 120.0 mL/min 06/[address] [place] [address] Chemistry eGFR AA >90 mL/min/1 .73_m2 10/[address] [place] [address] Chemistry eGFR Non-AA >90 mL/min/1 .73_m2 10/[address] [place] [address] Chemistry Sodium 140 mmol/L 135 - 145 10/[address] [place] [address] Chemistry Potassium Lvl 4.10 mmol/L 3.50 - 5.10 10/[address] [place] [address] Chemistry Chloride 104 mmol/L 98 - 107 10/[address] [place] [address] Chemistry AGAP 11 mmol/L 7 - 16 10/[address] [place] [address] Chemistry Osmo Calc 293 mOsm/kg 277 - 308 10/[address] [place] [address] Chemistry Glucose Lvl 103 mg/dL 74 - 109 10/[address] [place] [address] Chemistry BUN 19.0 mg/dL 6.0 - 23.0 10/[address] [place] [address] Chemistry CO2 25 mmol/L 22 - 31 10/[address] [place] [address] Chemistry Creatinine Level 0.68 mg/dL 0.50 - 1.00 10/[address] [place] [address] Chemistry Calcium 9.2 mg/dL 8.6 - 10.3 10/[address] [place] [address] Chemistry ALT 14 U/L 0 - 33 10/[address] [place] [address] Chemistry AST 16 U/L 0 - 35 10/[address] [place] [address] Chemistry Bilirubin Total 0.30 mg/dL 0.15 - 1.20 10/[address] Chemistry Alk Phos 57 U/L 35 - 104 10/[address] Chemistry Albumin 4.6 g/dL 3.5 - 5.2 10/[address] [place] [address] Chemistry Protein Total 7.6 g/dL 6.6 - 8.7 10/[address] [place] [address] Chemistry Bilirubin Direct <0.2 mg/dL 0.0 - 0.3 10/[address] [place] [address] Chemistry BUN/Creat Ratio 28 7 - 25 10/[address] [place] [address] Chemistry A/G Ratio 1.5 1.0 - 2.5 10/[address] [place] [address] Chemistry TSH 3.780 uIU/mL 0.270 - 4.320 10/03 N Interpretiv e Data: Ingestion of Biotin or Biotin-cont aining supplements >5 mg/day within 8 hours of specimen collection has known interferenc e on the result of this test. [address] [place] [address] Chemistry Cholesterol Total 182.0 mg/dL 0.0 - 200.0 10/03 N Interpretiv e Data: NCEP ATP III Cholesterol Guidelines For Adults (mg/dL): ------- Desirable: Less than 200 Borderline: 200-240 High Risk: Greater than [address] [place] [address] Chemistry HDL Cholesterol 48 mg/dL 40 - 60 10/03 N Interpretiv e Data: Desirable is greater than or equal to 60 mg/dL [address] [place] [address] Chemistry LDL 120.00 mg/dL 0.00 - 99.00 10/03 [facility] Chemistry Triglycerid es 80.00 mg/dL 0.00 - 200.00 10/[address] [place] [address] Chemistry LDL Direct 120.00 mg/dL 0.00 - 149.00 10/03 N Interpretiv e Data: LDL, Direct 2012 ACC/AHA Guidelines For Adults (mg/dL): Optimal: Less than 100 Near/Above Optimal: 100-129 Borderline High: 130-159 High: 160-189 Very High: Greater than [address] [place] [address] Chemistry Chol/HDL 3.8 0.0 - 5.0 10/[address] [place] [address] Chemistry LDL/HDL 2 10/[address] [place] [address] Chemistry VLDL 16 10/[address] [place] [address] Chemistry Hemoglobin A1c 4.9 % 4.3 - 5.6 10/03 N Interpretiv [Embedded Image Not Available]
--- NOTE | 2024-07-21 15:04 | MHC.AU.CER ---
Cerumen Removal Date of Visit: 07/21/24 Medical Conditions: No Conditions of Concern for Cerumen Removal. Marked items on checklist were historic events. Medications: No Medications of Concern for Cerumen Removal Procedure: Right Ear: Prior to Removal: Clear Canal Outcome of Procedure: Cerumen removal not needed Left Ear: Prior to Removal: Complete Occlusion Outcome of Procedure: Cerumen was easily removed using lighted curette. All cerumen was removed without complication. Recommendations: Recommendations: Follow-up as needed Diagnosis Code(s): Primary Diagnosis: H61.22 Impacted Cerumen, Left Ear Services Performed: Cerumen Removal (CPT 17275) One Ear Signature: Provider: K[place], [facility]
== END 2024-07-21 14:24 | disposition home or self-care (01) ==
LOC: HO.HAP 14:23
DX: Z46.1 Encounter for fitting and adjustment of hearing aid (principal); H61.22 Impacted cerumen, left ear
CPT/HCPCS: 92700